=== PATIENT | female | born 1990 | race Caucasian/White ===

== ENCOUNTER 2023-12-23 00:14 | Emergency (ER) | payer BC ==
[~2023-12-23] VITALS: Ht 170.2 cm; Wt 120.2 kg
[~2023-12-23 00:14] MED LIST: YAZ BCP PO
[2023-12-23] MEDS ORDERED: MULVITA PO (01:04)
[2023-12-23 01:19] LABS: BASOPHILS ABSOLUTE AUTO 0.05 K/mm3 (0.00-0.23); BASOPHILS PERCENT AUTO 1 % (0-2); EOSINOPHILS ABSOLUTE AUTO 0.08 K/mm3 (0.00-0.68); EOSINOPHILS PERCENT AUTO 1 % (0-6); Hematocrit 41.4 % (33.0-51.0); Hemoglobin 13.7 g/dL (11.5-16.0); IMMATURE GRAN ABSOLUTE AUTO 0.05 K/mm3 (0.00-0.10); IMMATURE GRAN PERCENT AUTO 1 % (0-1); LYMPHOCYTES ABSOLUTE AUTO 1.79 K/mm3 (0.84-5.20); LYMPHOCYTES PERCENT AUTO 17 % (21-46); MONOCYTES ABSOLUTE AUTO 0.64 K/mm3 (0.16-1.47); MONOCYTES PERCENT AUTO 6 % (4-13); Mean Corpuscular HGB 29.9 pg (26.0-34.0); Mean Corpuscular HGB Conc 33.1 g/dL (31.5-36.5); Mean Corpuscular Volume 90 fL (80-100); Mean Platelet Volume 11.1 fL (9.1-12.4); NEUTROPHILS ABSOLUTE AUTO 8.15 K/mm3 (1.96-9.15); NEUTROPHILS PERCENT AUTO 76 % (41-73); Platelet Count 169 K/mm3 (150-400); RDW Coefficient Variation 13.9 % (11.7-14.2); RDW Standard Deviation 46.6 fL (35.1-46.3); Red Blood Cell Count 4.58 M/mm3 (3.80-5.20); White Blood Cell Count 10.76 K/mm3 (4.00-11.30)
[2023-12-23 01:46] LABS: Albumin, Blood 3.5 g/dL (3.4-5.0); Albumin/Globulin Ratio 0.9 (0.8-1.8); Bilirubin, Total 0.2 mg/dL (0.1-1.0); Bun/Creatinine Ratio 24.5 (12.0-20.0); Calcium, Blood 8.9 mg/dL (8.5-10.1); Creatinine, Blood 0.57 mg/dL (0.40-1.00); Globulin, Blood 4.1 g/dL (2.2-4.0); Magnesium, Blood 1.6 mg/dL (1.6-2.4); Potassium, Blood 3.9 mmol/L (3.5-5.5); Total Protein, Blood 7.6 g/dL (6.4-8.2)
[2023-12-23] MEDS ORDERED: Mag Hydrox/AL Hydrox/Simeth 30 ML UDC PO ONE (02:10)
[2023-12-23] MEDS ORDERED: Lidocaine 2% Viscous Soln 15 ML UDC PO ONE (02:10)
[2023-12-23] MEDS ORDERED: Famotidine 10 MG/ML 2ML Vial IV ONE (02:10)
[2023-12-23] MEDS ORDERED: FAMO20 PO (04:11)
[2023-12-23] MEDS ORDERED: ALMACONE SUSPE355 ML PO (04:11)
[2023-12-23 04:28] VITALS: BP 120/81
== END 2023-12-23 04:28 | disposition home or self-care (01) ==
LOC: ER 00:14
PROVIDERS: Physician Assistant
DX: R07.2 Precordial pain (principal); Z68.41 Body mass index [BMI] 40.0-44.9, adult; Z79.899 Other long term (current) drug therapy
CPT/HCPCS: 71046; 80053; 83735; 84484; 84703; 85025; 93005; 93010; 96374; 99285-25; A9270

== ENCOUNTER → 2024-01-24 | Outpatient (CLI) | payer BC ==
[~2024-01-24] MED LIST changes: +ALMACONE SUSPE355 ML PO; +FAMO20 PO; +MULVITA PO
== END | disposition home or self-care (01) ==
LOC: LAB SHORT 10:29
DX: Z30.09 Encounter for other general counseling and advice on contraception (principal)
CPT/HCPCS: 84144